=== PATIENT | female | born 1980 | race African-American/Black ===

== ENCOUNTER 2020-01-30 19:03 | Emergency (ER) | payer OTHER, SELFPAY ==
--- NOTE | ~2020-01-30 | US_ITS ---
EXAMINATION: US OB <=14 wk fetus w TV DATE: 01/30/2020 20:42 INDICATION: . Vaginal bleeding. TECHNIQUE: Real-time transabdominal and transvaginal obstetric ultrasound. FINDINGS: The uterus measures 12.5 x 6.3 x 6.3 cm. There is an intrauterine gestational sac, with pole id entified. There is a subchorionic hemorrhage measuring 2.8 x 2.3 x 0.5 cm. The crown rump length hannah ures 0.42 cm, which correlates with a estimated gestational age of 6 weeks 1 day. heart tones are identified measuring 79 bpm. There is a 1.5 cm corpus luteal cyst of the left ovary. Right ovary not visualized. IMPRESSION: 1. SL IUP with an EGA of 6 weeks, 1 days (EDC by current ultrasound of 09/23/2020). 2: Small subchorionic hemorrhage. 3: 1.5 cm corpus luteal cyst left ovary. Reviewed, dictated and finalized at location A. IMPRESSION: 1. SL IUP with an EGA of 6 weeks, 1 days (EDC by current ultrasound of ). 2: Small subchorionic hemorrhage. 3: 1.5 cm corpus luteal cyst left ovary.
[2020-01-30 19:18] VITALS: BP 152/79; PULSE 97; RESP 16; TEMP 36.1; O2SAT 100
--- NOTE | 2020-01-30 19:31 | ED.GENADULT ---
HPI - General Adult General Chief complaint: Vaginal Bleeding Stated complaint: 6-8 wks preg and bleeding Time Seen by Provider: 01/30/20 19:08 Source: RN notes reviewed History of Present Illness HPI narrative: Patient presents emergency department from home for vaginal bleeding. Patient states symptoms began approximately 20 minutes ago states she was using the restroom and wiped and noted blood. Patient states she is proximately 60 weeks . States she has had a home test has not had a formal ultrasound INSTRUMENT LENS GRINDER is Dr. Sun patient is G4, P2 she denies any fevers or chills abdominal pain nausea vomiting or any other symptoms Related Data Allergies Allergy/AdvReac Type Severity Reaction Status Date / Time CYCLOBENZAPRINE HCL Allergy Severe when taken Uncoded 10/18/17 13:42 with ultram, PSYCHOSIS TRAMADOL HCL Allergy Severe when taken Uncoded 10/18/17 13:42 with flexeril, PSYCHOSIS Review of Systems Review of Systems: Narrative: Gen.: Denies fevers or chills ENT: Denies congestion Respiratory: Denies shortness of breath or cough CV: Denies chest pain or palpitations GI: Denies abdominal pain nausea, emesis or diarrhea see HPI Musculoskeletal: Denies back pain or muscle pain Neuro: Denies numbness, tingling, weakness or focal weakness Skin: Denies rash Except as documented, all other systems reviewed and negative PMF Past Medical History Medical History (Updated 01/30/20 @ 21:19 by Isaac Goodwin DO) Diabetes mellitus Social History Social History (Updated 01/30/20 @ 19:33 by Isaac Goodwin DO) Gender identity (if verbalized by the patient): Female Exam Narrative: Exam Narrative: APPEARANCE: No acute distress, nontoxic, resting in bed EYES: EOMI HEENT: Normocephalic, atraumatic, OMM RESPIRATORY: No respiratory distress Clear to auscultation bilaterally with no rhonchi wheezing or rales. CARDIOVASCULAR: Regular rate and rhythm without murmurs rubs or gallops. ABDOMINAL: Soft, nontender, nondistended, no rebound or guarding : Normal external exam, small amount of dark red blood in vaginal canal cervix is closed MUSCULOSKELETAl: Moves all extremities. No clubbing, cyanosis or edema. NEURO: Awake and alert. Following commands, speech normal, no focal deficits SKIN:: Warm, dry. No rashes lesions or abrasions PSYCHIATRIC: Normal affect/mood, Course Course Emergency Course: Discussed with Dr. Silva for Dr. Sun presentation work-up agrees with plan for discharge follow-up as an outpatient Discussed with patient results of workup and diagnosis. Discussed need for follow-up with primary care, proper use of medication, and reasons to return to the emergency department. Patient understands and agrees to current treatment plan Vital Signs Vital signs: Vital Signs Temperature 97 F L 01/30/20 19:18 Pulse Rate 97 01/30/20 19:18 Respiratory Rate 16 01/30/20 19:18 Blood Pressure 152/79 H 01/30/20 19:18 Pulse Oximetry 100 01/30/20 19:18 Temperature 97 F L 01/30/20 19:18 Pulse Rate 108 H 01/30/20 21:04 Respiratory Rate 16 01/30/20 19:18 Blood Pressure 141/90 H 01/30/20 21:04 Pulse Oximetry 100 01/30/20 19:18 Medical Decision Making Vital Signs Vital Signs: Vital Signs Temperature 97 F L 01/30/20 19:18 Pulse Rate 97 01/30/20 19:18 Respiratory Rate 16 01/30/20 19:18 Blood Pressure 152/79 H 01/30/20 19:18 Pulse Oximetry 100 01/30/20 19:18 Temperature 97 F L 01/30/20 19:18 Pulse Rate 108 H 01/30/20 21:04 Respiratory Rate 16 01/30/20 19:18 Blood Pressure 141/90 H 01/30/20 21:04 Pulse Oximetry 100 01/30/20 19:18 Lab Data Result diagrams: 01/30/20 19:28 Labs: Lab Results 01/30/20 01/30/20 01/30/20 Range/Units 19:28 19:28 19:31 WBC 11.1 H (4.5-10.0) K/mm3 RBC 4.51 (4.2-5.4) M/mm3 Hgb 13.0 (12.0-15.0) g/dL Hct 38.7 (37.0-47.0) % MCV 85.8 (80-100
[2020-01-30 19:33] LABS: Basophils Absolute Auto 0.1 K/mm3 (0.0-0.1); Basophils Percent Auto 0.5 % (0.2-1.2); Eosinophils Absolute Auto 0.2 K/mm3 (0-0.3); Hematocrit 38.7 % (37.0-47.0); Immature Granulocyte Absolute 0.04 K/mm3 (0.00-0.031); Immature Granulocyte Percent A 0.4 % (0-0.5); Lymphocytes Absolute Auto 2.85 K/mm3 (0.9-3.2); Lymphocytes Percent Auto 25.7 % (18.3-44.2); Mean Corpuscular HGB Conc 33.6 g/dl (32-36); Mean Corpuscular Hemoglobin 28.8 pg (26-34); Mean Corpuscular Volume 85.8 fl (80-100); Mean Platelet Volume 10.9 fl (7.4-10.4); Monocytes Absolute Auto 0.8 K/mm3 (0.1-0.6); Monocytes Percent Auto 7.1 % (2.6-8.5); Neutrophils Absolute Auto 7.2 K/mm3 (1.3-6.7); Neutrophils Percent Auto 64.3 % (45.5-73.1); Platelet Count Result 308 k/mm3 (150-375); Red Blood Count 4.51 M/mm3 (4.2-5.4); Red Cell Distribution Width 13.2 % (11.5-14.5); White Blood Count 11.1 K/mm3 (4.5-10.0)
[2020-01-30 19:52] LABS: Add Urine Microscopic? YES; Appearance Urine Clear (Clear); Bilirubin Urine Negative (Negative); Blood Urine 1+ (Negative); Color Urine Straw (Yellow); Glucose Urine UA 3+ mg/dL (Negative); Ketones Urine Trace mg/dL (Negative); Leukocyte Esterase Ur Negative LEU/UL (Negative); Nitrate Urine Negative (Negative); Protein Urine Negative (Negative); RBC Urine 0-2 /hpf (0-2); Specific Grav Ur 1.032 (1.001-1.035); Squamous Epithelial Cell Urine Rare /hpf (Few); Urobilinogen Urine Negative mg/dL (<2.0); WBC Urine 0-3 /hpf
[2020-01-30 21:02] VITALS: BP 135/77; PULSE 88
[2020-01-30 21:03] VITALS: BP 144/89; PULSE 93
[2020-01-30 21:04] VITALS: BP 141/90; PULSE 108
[2020-01-30 22:14] VITALS: BP 142/88; PULSE 88; RESP 16; O2SAT 98
== END 2020-01-30 22:14 | disposition home or self-care (01) ==
PROVIDERS: Emergency Provider Emergency Medicine; PCP Family Medicine
DX: O20.0 Threatened abortion (principal); Z3A.01 Less than 8 weeks gestation of pregnancy; O34.81 Maternal care for other abnormalities of pelvic organs, first trimester; N83.12 Corpus luteum cyst of left ovary; O24.111 Pre-existing type 2 diabetes mellitus, in pregnancy, first trimester; E11.9 Type 2 diabetes mellitus without complications
CPT/HCPCS: 36415; 76801; 76817; 81001; 81025; 84702; 85025; 85461; 99284

== ENCOUNTER 2020-02-02 08:27 | Outpatient (CLI) | payer OTHER, SELFPAY | END 2020-02-02 08:28 | disposition home or self-care (01) | LOC: ANHLAB 08:30 | PROVIDERS: PCP Family Medicine; Visit Provider Obstetrics & Gynecology | DX: O26.859 Spotting complicating pregnancy, unspecified trimester (principal); Z3A.00 Weeks of gestation of pregnancy not specified | CPT/HCPCS: 36415; 84702 ==

== ENCOUNTER 2020-02-12 11:10 | Outpatient (CLI) | payer OTHER, SELFPAY ==
--- NOTE | ~2020-02-12 | US_ITS ---
US OB <=14 wk fetus w TV DATE: 02/12/2020 12:04 INDICATION: Vaginal bleeding TECHNIQUE: Real-time imaging and Doppler evaluation COMPARISON: 01/30/2020 obstetrical ultrasound FINDINGS: An intrauterine gestational sac is identified as well is a pole, but no cardiac motion is detected. Mcdonald-rump length of 0.62 cm is consistent with expected gestational age of 6 we eks 3 days +/- 4 days, which time a heart beat would be expected. Findings therefore are consistent w ith demise at approximately 6 weeks 3 days gestation.. IMPRESSION: demise is suggested due to absence of any heart motion at 6 weeks 3 days steve mated gestational age Reviewed, dictated and finalized at [facility]. Reviewed, dictated and finalized at location A. IMPRESSION: demise is suggested due to absence of any heart motion at 6 weeks 3 days estimated gestational age
== END 2020-02-12 11:11 | disposition home or self-care (01) ==
PROVIDERS: PCP Family Medicine; Visit Provider Obstetrics & Gynecology
DX: O26.859 Spotting complicating pregnancy, unspecified trimester (principal)
CPT/HCPCS: 76801; 76817

== ENCOUNTER 2020-03-15 09:53 | Emergency (ER) | payer OTHER, SELFPAY ==
--- NOTE | ~2020-03-15 | CT_ITS ---
EXAMINATION: CT pelvis w con DATE: 03/15/2020 12:21 INDICATION: Labial abscess/cellulitis. TECHNIQUE: Computed tomography (CT) of the pelvis was performed with 100 mL Omnipaque-350 intravenous contrast. The dose-length product was 932.86 mGy-cm. COMPARISON: None FINDINGS: Soft tissue swelling and prominent inflammatory stranding of the left side of the mons and labia isidro ra consistent with sialitis without a discrete fluid collection to suggest abscess. No evident subcut aneous gas. Bladder and anteverted uterus are normal. Small follicles at the bilateral ovaries. Visua lized portions of the bowels and base of the appendix are normal. No free intraperitoneal gas or flui d in the visualized pelvis and lower abdomen. No pathologically enlarged pelvic or inguinal lymphaden opathy. Visualized bones are unremarkable.. IMPRESSION: 1. Cellulitis without discrete abscess at the left mons and labia majora. Reviewed, dictated and finalized at location A.
[2020-03-15 09:58] VITALS: BP 159/79; PULSE 105; RESP 18; TEMP 36.9; O2SAT 100
--- NOTE | 2020-03-15 11:02 | ED.SKABFB ---
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 Reports a fever yesterday. Reports she thinks she might of had some drainage from the area. History of abscesses, but never in this area. Denies dysuria. Related Data Home Medications Medication Instructions Recorded Confirmed insulin lispro 03/15/20 insulin lispro [Humalog KwikPen unit SUBCUT 03/15/20 Insulin] insulin syringe-needle U-100 03/15/20 03/15/20 [TRUEplus Insulin] metformin mg 03/15/20 Allergies Allergy/AdvReac Type Severity Reaction Status Date / Time CYCLOBENZAPRINE HCL Allergy Severe when taken Uncoded 10/18/17 13:42 with ultram, PSYCHOSIS TRAMADOL HCL Allergy Severe when taken Uncoded 10/18/17 13:42 with flexeril, PSYCHOSIS Review of Systems Review of Systems: Narrative: CONSTITUTIONAL: Reports fever SKIN: Reports edema and pain All systems reviewed & are unremarkable except as noted in HPI and below PMFSH Past Medical History Medical History (Updated 03/15/20 @ 13:06 by Aliyah Melvin PA-C) Diabetes mellitus Social History Social History (Updated 03/15/20 @ 11:03 by Aliyah Melvin PA-C) Smoking status: Current every day smoker Substance use: current Substance use type: marijuana Gender identity (if verbalized by the patient): Female Exam Narrative: Exam Narrative: GENERAL: Well-appearing, obese, and in no acute distress. HEAD: Normocephalic, atraumatic. EYES: EOMI. EXTREMITIES: Normal range of motion. No edema. SKIN: Warm, dry, no rash. NEURO: No focal deficits. Alert and oriented x3. PSYCH: Normal mood and affect FEMALE GENITAL: Left labia majora/mons pubis with moderate edema and induration, no fluctuance to suggest abscess Course Vital Signs Vital signs: Vital Signs Temperature 98.4 F 03/15/20 09:58 Pulse Rate 105 H 03/15/20 09:58 Respiratory Rate 18 03/15/20 09:58 Blood Pressure 159/79 H 03/15/20 09:58 Pulse Oximetry 100 03/15/20 09:58 Temperature 98.4 F 03/15/20 09:58 Pulse Rate 105 H 03/15/20 09:58 Respiratory Rate 18 03/15/20 09:58 Blood Pressure 159/79 H 03/15/20 09:58 Pulse Oximetry 100 03/15/20 09:58 MDM - Skin/Abscess/Foreign Bdy MDM Narrative Medical decision making narrative: Patient presents to the emergency department for cellulitis. Is a diabetic. Patient is afebrile and nontoxic-appearing. CBC with leukocytosis to 15.7. Inflammatory markers are elevated. UA without evidence of infection. CT scan of the pelvis shows cellulitis without discrete abscess at the left mons and labia majora. Due to patient's history of diabetes and laboratory and imaging evaluation spoke with her about wanting to keep her for IV antibiotics. Patient would like to sign out AMA. Discussed risks of doing so. Will not let me give her a dose of IV before leaving. Will be sent home on oral antibiotics. Was told to return at any time for further treatment Lab Data Attestation: I reviewed the patient's lab results. Result diagrams: 03/15/20 11:16 03/15/20 11:16 Labs: Lab Results 03/15/20 03/15/20 03/15/20 Range/Units 11:10 11:16 11:16 WBC 15.7 H (4.5-10.0) K/mm3 RBC 4.78 (4.2-5.4) M/mm3 Hgb 13.7 (12.0-15.0) g/dL Hct 40.7 (37.0-47.0) % MCV 85.1 (80-100) fl MCH 28.7 (26-34) pg MCHC 33.7 (32-36) g/dl RDW 13.2 (11.5-14.5) % Plt Count 302 (150-375) k/mm3 MPV 11.3 H (7.4-10.4) fl Immature Gran % (Auto) 0.4 (0-0.5) % Neut % (Auto) 79.6 H (45.5-73.1) % Lymph % (Auto) 9.6 L (18.3-44.2) % Bent % (Auto) 8.5 (2.6-8.5) % Eos % (Auto)
[2020-03-15 11:22] LABS: Add Urine Microscopic? YES; Appearance Urine Clear (Clear); Bilirubin Urine Negative (Negative); Blood Urine Negative (Negative); Color Urine Yellow (Yellow); Glucose Urine UA 3+ mg/dL (Negative); Ketones Urine Trace mg/dL (Negative); Leukocyte Esterase Ur Negative LEU/UL (Negative); Mucus Urine Rare /lpf; Nitrate Urine Negative (Negative); Protein Urine 2+ mg/dL (Negative); Specific Grav Ur 1.033 (1.001-1.035); Squamous Epithelial Cell Urine Rare /hpf (Few); Urobilinogen Urine Negative mg/dL (<2.0); WBC Urine 0-3 /hpf
[2020-03-15 11:26] LABS: Basophils Absolute Auto 0.1 K/mm3 (0.0-0.1); Basophils Percent Auto 0.4 % (0.2-1.2); Eosinophils Absolute Auto 0.2 K/mm3 (0-0.3); Eosinophils Percent Auto 1.5 % (0-4.4); Hematocrit 40.7 % (37.0-47.0); Hemoglobin 13.7 g/dL (12.0-15.0); Immature Granulocyte Absolute 0.07 K/mm3 (0.00-0.031); Immature Granulocyte Percent A 0.4 % (0-0.5); Lymphocytes Percent Auto 9.6 % (18.3-44.2); Mean Corpuscular HGB Conc 33.7 g/dl (32-36); Mean Corpuscular Hemoglobin 28.7 pg (26-34); Mean Corpuscular Volume 85.1 fl (80-100); Mean Platelet Volume 11.3 fl (7.4-10.4); Monocytes Absolute Auto 1.3 K/mm3 (0.1-0.6); Monocytes Percent Auto 8.5 % (2.6-8.5); Neutrophils Absolute Auto 12.5 K/mm3 (1.3-6.7); Neutrophils Percent Auto 79.6 % (45.5-73.1); Platelet Count Result 302 k/mm3 (150-375); Red Blood Count 4.78 M/mm3 (4.2-5.4); Red Cell Distribution Width 13.2 % (11.5-14.5); White Blood Count 15.7 K/mm3 (4.5-10.0)
[2020-03-15 11:44] LABS: Blood Urea Nitrogen 13 mg/dL (7-17); Calcium 9.5 mg/dL (8.4-10.2); Carbon Dioxide 24 mmol/L (22-30); Chloride 103 mmol/L (98-107); Estimated CRCL calculation 153 ml/min; Estimated Glomerular Filt Rate > 60; Glucose 265 mg/dL (65-105); Potassium 4.2 mmol/L (3.4-5.0); Sodium 136 mmol/L (137-145)
[2020-03-15 11:54] LABS: Erythrocyte Sedimentation Rate 51 mm/hr (0-20)
[2020-03-15 11:55] LABS: CRP 19.8 mg/dL (<1.0)
--- NOTE | 2020-03-15 12:10 | PC.NURSE ---
pt to ct via stretcher with radiology at this time.
[2020-03-15] MEDS: SODIUM CHLORIDE 0.9% IV 1,000 ML 999 ML IV CONT (12:28)
--- NOTE | 2020-03-15 12:50 | PC.NURSE ---
pt requesting to leave AMA. ERP ANTHONY Garcia notified.
--- NOTE | 2020-03-15 12:59 | PC.NURSE ---
ERP ANTHONY Garcia at bedside to speak with pt regarding leaving AMA.
[2020-03-15 13:34] VITALS: BP 155/96; PULSE 94; RESP 18; O2SAT 100
== END 2020-03-15 13:37 | disposition left against medical advice (07) ==
PROVIDERS: Physician Assistant; Emergency Provider Emergency Medicine; PCP Family Medicine
DX: L03.314 Cellulitis of groin (principal); F17.210 Nicotine dependence, cigarettes, uncomplicated; E11.9 Type 2 diabetes mellitus without complications; Z79.4 Long term (current) use of insulin
CPT/HCPCS: 36415; 72193; 80048; 81001; 81025; 85025; 85652; 86140; 99284; J7030; Q9967

== ENCOUNTER 2023-09-19 18:55 | Emergency (ER) | payer OTHER, SELFPAY ==
--- NOTE | ~2023-09-19 | XR_ITS ---
EXAMINATION: XR knee RT 3V DATE: 09/19/2023 22:39 INDICATION: Right knee pain TECHNIQUE: Three views of the right knee were obtained. COMPARISON: None. FINDINGS: Alignment is normal. No fracture or osteochondral lesion. There is mild tricompartmental os teoarthritis characterized by tiny marginal osteophytes. There is a large knee joint effusion. Soft t issues are unremarkable. IMPRESSION: 1. Osteoarthritis and large knee joint effusion without acute osseous abnormality. Reviewed, dictated and finalized at location F. ATIONS ADMINISTRATOR IMPRESSION: 1. Osteoarthritis and large knee joint effusion without acute osseous abnormali ty.
--- NOTE | ~2023-09-19 | XR_ITS ---
EXAMINATION: XR femur RT min 2V INDICATION: Right leg pain TECHNIQUE: Two views of the right femur are obtained on four radiographs. COMPARISON: None available FINDINGS: Bone alignment is normal. There is no fracture. There is mild osteoarthritis of the hip and knee. There is a large knee joint effusion. IMPRESSION: 1. No acute osseous abnormality. Reviewed, dictated and finalized at location F. UNT SUPPORT ANALYST
--- NOTE | ~2023-09-19 | XR_ITS ---
EXAMINATION: XR hip RT min 2V DATE: 09/19/2023 22:39 INDICATION: Right hip pain TECHNIQUE: Two views of right hip were obtained. COMPARISON: None. FINDINGS: Bone alignment is normal. There is no fracture. There is mild osteoarthritis of the hip. Th e soft tissues are unremarkable. IMPRESSION: 1. Mild osteoarthritis of the hip. Reviewed, dictated and finalized at location F. ICAL SUPPLY ASSISTANT
[2023-09-19 18:58] VITALS: BP 155/75; PULSE 96; RESP 16; TEMP 36.9; O2SAT 97
[2023-09-19 21:43] VITALS: BP 189/89; PULSE 84; RESP 15; TEMP 36.4; O2SAT 100
--- NOTE | 2023-09-19 22:27 | ED.FALL ---
HPI - Fall General Chief Complaint: Fall Stated Complaint: fell on bathtub, L hip pain Time Seen by Provider: 09/19/23 22:08 History of Present Illness HPI Narrative: 43-year-old female reports for evaluation for a right lower extremity pain after a mechanical fall that occurred prior to arrival. Patient states she was stepping out of the shower and is trying to avoid her kid who was at her feet, misstepped and landed in the splits. States she landed with her right leg down her left leg back. She is reporting pain from her right hip down into her right knee with associated swelling, worsening pain with movement. She denies midline back pain, head injury, loss of consciousness, neck pain, or other injury. Related Data Home Medications Medication Instructions Recorded Confirmed insulin lispro 100 unit/mL unit subcut 03/15/20 subcutaneous pen (Humalog KwikPen (U-100) Insulin) insulin lispro 100 unit/mL 03/15/20 subcutaneous solution insulin syringe-needle U-100 0.3 03/15/20 03/15/20 mL 31 gauge x 5/16 (TRUEplus Insulin) metformin 1,000 mg tablet mg 03/15/20 Allergies Allergy/AdvReac Type Severity Reaction Status Date / Time CYCLOBENZAPRINE HCL Allergy Severe when taken Uncoded 10/18/17 13:42 with ultram, PSYCHOSIS TRAMADOL HCL Allergy Severe when taken Uncoded 10/18/17 13:42 with flexeril, PSYCHOSIS Review of Systems Review of Systems: CONSTITUTIONAL: Denies fever, chills, or sweats. EYES: Denies visual changes, redness, or discharge. ENT: Denies rhinorrhea, congestion, sore throat, or otalgia. CARDIOVASCULAR: Denies chest pain, palpitations, or edema. RESPIRATORY: Denies cough or dyspnea. GASTROINTESTINAL: Denies abdominal pain, nausea, vomiting, or diarrhea. GENITOURINARY: Denies dysuria or hematuria. SKIN: Denies rash or itching. MUSCULOSKELETAL: See HPI NEUROLOGIC: Denies headache, numbness, or weakness. PSYCHIATRIC: Denies anxiety or depression. [facility] Past Medical History Medical History Diabetes mellitus Social History Social History Smoking status: Current every day smoker Substance use: current Substance use type: marijuana Gender identity (if verbalized by the patient): Female Exam Narrative: GENERAL: Well-appearing, well-nourished, and in no acute distress. HEAD: Normocephalic, atraumatic. NECK: Supple. BACK: No midline thoracolumbar spinous tenderness, step-offs or deformities. Mild tenderness to the right thoracic and lumbar spinous muscles without overlying skin changes. CHEST: Clear to auscultation. No respiratory distress. HEART: Regular rate and rhythm. No murmur heard. Normal peripheral pulses. ABDOMEN: Soft, nontender, nondistended, normal active bowel sounds. EXTREMITIES: Tenderness to palpation of the head of the femur, generalized throughout the femur, and generalized throughout the right knee. There is edema superior to the right knee. No lacerations, abrasions, ecchymosis. Full range of motion of hip and knee with pain. No warmth or erythema. DP pulse 2 +. Sensation intact. No tenderness to the left lower extremity. SKIN: Warm, dry, no rash. NEURO: No focal deficits. Alert and oriented x3 Course Vital Signs Vital signs: Vital Signs Temperature 98.4 F 09/19/23 18:58 Pulse Rate 96 09/19/23 18:58 Respiratory Rate 16 09/19/23 18:58 Blood Pressure 155/75 H 09/19/23 18:58 Pulse Oximetry 97 09/19/23 18:58 Oxygen Delivery Room Air 09/19/23 18:58 Temperature 97.6 F 09/19/23 21:43 Pulse Rate 90 09/20/23 00:17 Respiratory Rate 17 09/20/23 00:17 Blood Pressure 161/76 H 09/20/23 00:17 Pulse Oximetry 100 09/20/23 00:17 Oxygen Delivery Room Air 09/19/23 18:58 MDM - Fall MDM Narrative Medical decision making narrative: 43-year-old female reporting for
[2023-09-20] MEDS: KETOROLAC 30 MG/ML VIAL (*BKC) IM (00:04)
[2023-09-20] MEDS: CYCLOBENZAPRINE HCL 10 MG TABLET PO (00:04)
[2023-09-20 00:17] VITALS: BP 161/76; PULSE 90; RESP 17; O2SAT 100
== END 2023-09-20 00:20 | disposition home or self-care (01) ==
PROVIDERS: Emergency Provider Physician Assistant; PCP Family Medicine
DX: S83.91XA Sprain of unspecified site of right knee, initial encounter (principal); E11.9 Type 2 diabetes mellitus without complications; F17.200 Nicotine dependence, unspecified, uncomplicated; Z79.4 Long term (current) use of insulin; Z79.84 Long term (current) use of oral hypoglycemic drugs; W18.2XXA Fall in (into) shower or empty bathtub, initial encounter
CPT/HCPCS: 73502; 73552; 73562; 81025; 96372; 99284; A9270; J1885

== ENCOUNTER 2025-05-06 15:00 | Outpatient (RCR) | payer OTHER, SELFPAY | END 2025-05-06 23:59 | disposition home or self-care (01) | LOC: ANHCPREHAB 15:00 | DX: Z95.1 Presence of aortocoronary bypass graft (principal) | CPT/HCPCS: 93798 ==

== ENCOUNTER 2025-06-07 15:00 | Outpatient (RCR) | payer OTHER, SELFPAY | END 2025-06-15 10:43 | disposition home or self-care (01) | LOC: ANHCPREHAB 15:00 | DX: Z95.1 Presence of aortocoronary bypass graft (principal) | CPT/HCPCS: 93798 ==